=== PATIENT | female | born 1945 | race Asian ===

== ENCOUNTER → 2023-05-14 12:40 | Outpatient (REF) | payer MEDICARE, OTHER, SELFPAY ==
[2023-05-14 13:51] LABS: INR 2.74; PT 29.4 Sec (11.4-14.6)
== END ==
LOC: REG 12:40
PROVIDERS: ATTENDING PHYSICIAN Internal Medicine Cardiovascular Disease; FAMILY PHYSICIAN Family Medicine
DX: Z79.01 Long term (current) use of anticoagulants (principal); E78.2 Mixed hyperlipidemia; R06.02 Shortness of breath; R07.9 Chest pain, unspecified; I05.0 Rheumatic mitral stenosis; I48.0 Paroxysmal atrial fibrillation; Z95.2 Presence of prosthetic heart valve; Z98.890 Other specified postprocedural states; I35.1 Nonrheumatic aortic (valve) insufficiency; I51.7 Cardiomegaly
CPT/HCPCS: 36415; 85610

== ENCOUNTER → 2023-06-09 12:34 | Outpatient (REF) | payer MEDICARE, OTHER, SELFPAY ==
[2023-06-09 14:58] LABS: INR 3.49
== END ==
LOC: REG 12:34
PROVIDERS: ATTENDING PHYSICIAN Internal Medicine Cardiovascular Disease; FAMILY PHYSICIAN Family Medicine
DX: Z79.01 Long term (current) use of anticoagulants (principal); E78.2 Mixed hyperlipidemia
CPT/HCPCS: 36415; 85610

== ENCOUNTER → 2023-07-10 13:02 | Outpatient (REF) | payer MEDICARE, OTHER, SELFPAY ==
[2023-07-10 13:38] LABS: Hematocrit 38.5 % (37.0-47.0); Hemoglobin 12.8 g/dL (12.0-16.0); Mean Corp Hgb Conc. 33.2 g/dL (33.0-37.0); Mean Corpuscular Hgb 32.7 pg (27.0-31.0); Mean Corpuscular Volume 98.5 fL (81.0-99.0); Mean Platelet Volume 10.5 fL (7.4-10.4); Platelet Count 180 10^3/uL (130-400); Red Blood Cell Count 3.91 10^6/uL (4.20-5.40); Red Cell Dist. Width 14.3 % (11.5-14.5); White Blood Cell Count 5.9 10^3/uL (4.8-10.8)
[2023-07-10 13:49] LABS: INR 3.15; PT 32.3 Sec (11.4-14.6)
[2023-07-10 15:23] LABS: HDL Cholesterol 76 mg/dl
[2023-07-10 15:47] LABS: ALT (SGPT) 12 U/L (0-35); AST (SGOT) 28 U/L (14-36); Albumin 4.7 g/dl (3.5-5.0); Alkaline Phosphatase 74 U/L (38-126); Blood Urea Nitrogen 16 mg/dl (7-17); Calcium 10.1 mg/dl (8.4-10.2); Carbon Dioxide 22 mmol/L (22-30); Chloride 105 mmol/L (98-107); Glucose 108 mg/dl (70-99); Potassium 3.7 mmol/L (3.5-5.1); Sodium 140 mmol/L (135-145); Total Protein 8.7 g/dl (6.3-8.2); eGFR 57.66
[2023-07-10 16:51] LABS: Creatine Phosphokinase 81 U/L (30-135); LDL Cholesterol, Calculated 94 mg/dl; Magnesium 2.2 mg/dl (1.6-2.3); Total Cholesterol 199 mg/dl (50-199); Triglyceride 148 mg/dl (10-149); Very Low Density Lipoprotein 29 mg/dl (0-30)
== END ==
LOC: REG 13:02
PROVIDERS: ATTENDING PHYSICIAN Internal Medicine Cardiovascular Disease; FAMILY PHYSICIAN Family Medicine
DX: Z79.01 Long term (current) use of anticoagulants (principal); E78.2 Mixed hyperlipidemia; I05.0 Rheumatic mitral stenosis; I48.0 Paroxysmal atrial fibrillation; Z95.2 Presence of prosthetic heart valve; Z98.890 Other specified postprocedural states; I35.1 Nonrheumatic aortic (valve) insufficiency; I51.7 Cardiomegaly; R73.09 Other abnormal glucose
CPT/HCPCS: 36415; 80053; 80061; 82550; 83036; 83735; 85027; 85610

== ENCOUNTER → 2023-08-18 12:25 | Outpatient (REF) | payer MEDICARE, OTHER, SELFPAY ==
[2023-08-18 14:24] LABS: INR 3.79; PT 37.4 Sec (11.4-14.6)
[2023-08-18 14:44] LABS: Blood Urea Nitrogen 11 mg/dl (7-17); Calcium 9.7 mg/dl (8.4-10.2); Carbon Dioxide 30 mmol/L (22-30); Chloride 104 mmol/L (98-107); Glucose 107 mg/dl (70-99); Potassium 4.3 mmol/L (3.5-5.1); eGFR 57.66
[2023-08-18 15:21] LABS: Sodium 141 mmol/L (135-145)
== END ==
LOC: REG 12:25
PROVIDERS: ATTENDING PHYSICIAN Internal Medicine Cardiovascular Disease; FAMILY PHYSICIAN Family Medicine; REFERRING PHYSICIAN Registered Nurse Oncology
DX: C54.1 Malignant neoplasm of endometrium (principal); Z79.01 Long term (current) use of anticoagulants; E78.2 Mixed hyperlipidemia; I48.0 Paroxysmal atrial fibrillation; Z95.2 Presence of prosthetic heart valve; I35.1 Nonrheumatic aortic (valve) insufficiency
CPT/HCPCS: 36415; 80048; 85610

== ENCOUNTER → 2023-09-16 12:30 | Outpatient (REF) | payer MEDICARE, OTHER, SELFPAY ==
[2023-09-16 13:46] LABS: INR 3.16; PT 32.9 Sec (11.4-14.6)
== END ==
LOC: REG 12:30
PROVIDERS: ATTENDING PHYSICIAN Internal Medicine Cardiovascular Disease; FAMILY PHYSICIAN Family Medicine
DX: Z79.01 Long term (current) use of anticoagulants (principal); E78.2 Mixed hyperlipidemia; I48.0 Paroxysmal atrial fibrillation; Z95.2 Presence of prosthetic heart valve; I35.1 Nonrheumatic aortic (valve) insufficiency; I51.7 Cardiomegaly
CPT/HCPCS: 36415; 85610

== ENCOUNTER → 2023-10-16 12:28 | Outpatient (REF) | payer MEDICARE, OTHER, SELFPAY ==
[2023-10-16 13:53] LABS: INR 4.89; PT 45.8 Sec (11.4-14.6)
== END ==
LOC: REG 12:28
PROVIDERS: ATTENDING PHYSICIAN Internal Medicine Cardiovascular Disease; FAMILY PHYSICIAN Family Medicine
DX: Z79.01 Long term (current) use of anticoagulants (principal); E78.2 Mixed hyperlipidemia; I48.0 Paroxysmal atrial fibrillation; I05.0 Rheumatic mitral stenosis; Z95.2 Presence of prosthetic heart valve; I35.1 Nonrheumatic aortic (valve) insufficiency; I51.7 Cardiomegaly
CPT/HCPCS: 36415; 85610

== ENCOUNTER → 2023-11-12 12:24 | Outpatient (REF) | payer MEDICARE, OTHER, SELFPAY ==
[2023-11-12 13:36] LABS: INR 3.29
== END ==
LOC: REG 12:24
PROVIDERS: ATTENDING PHYSICIAN Internal Medicine Cardiovascular Disease; FAMILY PHYSICIAN Family Medicine
DX: Z79.01 Long term (current) use of anticoagulants (principal); E78.2 Mixed hyperlipidemia; I48.0 Paroxysmal atrial fibrillation; I05.0 Rheumatic mitral stenosis; Z95.2 Presence of prosthetic heart valve; I35.1 Nonrheumatic aortic (valve) insufficiency; I51.7 Cardiomegaly
CPT/HCPCS: 36415; 85610

== ENCOUNTER → 2023-12-11 12:20 | Outpatient (REF) | payer MEDICARE, OTHER, SELFPAY ==
[2023-12-11 14:05] LABS: INR 2.57; PT 27.5 Sec (11.4-14.6)
== END ==
LOC: REG 12:20
PROVIDERS: ATTENDING PHYSICIAN Internal Medicine Cardiovascular Disease; FAMILY PHYSICIAN Family Medicine
DX: Z79.01 Long term (current) use of anticoagulants (principal); E78.2 Mixed hyperlipidemia; I48.0 Paroxysmal atrial fibrillation; I05.0 Rheumatic mitral stenosis; Z95.2 Presence of prosthetic heart valve; I35.1 Nonrheumatic aortic (valve) insufficiency; I51.7 Cardiomegaly
CPT/HCPCS: 36415; 85610

== ENCOUNTER → 2024-01-13 13:00 | Outpatient (REF) | payer MEDICARE, OTHER, SELFPAY ==
[2024-01-13 13:49] LABS: Hematocrit 39.7 % (37.0-47.0); Mean Corp Hgb Conc. 32.7 g/dL (33.0-37.0); Mean Corpuscular Hgb 31.3 pg (27.0-31.0); Mean Corpuscular Volume 95.7 fL (81.0-99.0); Mean Platelet Volume 10.2 fL (7.4-10.4); Platelet Count 203 10^3/uL (130-400); Red Blood Cell Count 4.15 10^6/uL (4.20-5.40); Red Cell Dist. Width 15.4 % (11.5-14.5); White Blood Cell Count 7.3 10^3/uL (4.8-10.8)
[2024-01-13 14:00] LABS: INR 3.09; PT 32.3 Sec (11.4-14.6)
[2024-01-13 14:24] LABS: Glycohemoglobin (HgbA1c) 5.7 % (4.0-5.6)
[2024-01-13 15:40] LABS: ALT (SGPT) 16 U/L (0-35); AST (SGOT) 28 U/L (14-36); Albumin 4.9 g/dl (3.5-5.0); Alkaline Phosphatase 79 U/L (38-126); Blood Urea Nitrogen 12 mg/dl (7-17); Calcium 9.9 mg/dl (8.4-10.2); Carbon Dioxide 27 mmol/L (22-30); Chloride 102 mmol/L (98-107); Creatine Phosphokinase 87 U/L (30-135); Glucose 115 mg/dl (70-99); HDL Cholesterol 77 mg/dl; LDL Cholesterol, Calculated 86 mg/dl; Magnesium 2.3 mg/dl (1.6-2.3); Potassium 3.8 mmol/L (3.5-5.1); Sodium 142 mmol/L (135-145); Total Bilirubin 1.4 mg/dl (0.2-1.3); Total Cholesterol 194 mg/dl (50-199); Total Protein 8.7 g/dl (6.3-8.2); Triglyceride 158 mg/dl (10-149); Very Low Density Lipoprotein 31 mg/dl (0-30); eGFR 51.43
[2024-01-13 16:09] LABS: TSH Reflex To Free T4 4.78 uIU/ml (0.47-4.68)
[2024-01-13 16:39] LABS: Free T4 1.01 ng/dl (0.78-2.19)
== END ==
LOC: REG 13:00
PROVIDERS: ATTENDING PHYSICIAN Internal Medicine Cardiovascular Disease; FAMILY PHYSICIAN Family Medicine
DX: Z79.01 Long term (current) use of anticoagulants (principal); E78.2 Mixed hyperlipidemia; I48.0 Paroxysmal atrial fibrillation; I05.0 Rheumatic mitral stenosis; Z95.2 Presence of prosthetic heart valve; I35.1 Nonrheumatic aortic (valve) insufficiency; I51.7 Cardiomegaly; I36.1 Nonrheumatic tricuspid (valve) insufficiency; R73.9 Hyperglycemia, unspecified
CPT/HCPCS: 36415; 80053; 80061; 82550; 83036; 83735; 84439; 84443; 85027; 85610

== ENCOUNTER → 2024-02-10 12:31 | Outpatient (REF) | payer MEDICARE, OTHER, SELFPAY ==
[2024-02-10 13:40] LABS: INR 1.76
== END ==
LOC: REG 12:31
PROVIDERS: ATTENDING PHYSICIAN Internal Medicine Cardiovascular Disease; FAMILY PHYSICIAN Family Medicine
DX: R42 Dizziness and giddiness (principal); Z79.01 Long term (current) use of anticoagulants; E78.2 Mixed hyperlipidemia; I05.0 Rheumatic mitral stenosis; I48.0 Paroxysmal atrial fibrillation; Z98.890 Other specified postprocedural states; I51.7 Cardiomegaly
CPT/HCPCS: 36415; 85610

== ENCOUNTER → 2024-02-24 12:45 | Outpatient (REF) | payer MEDICARE, OTHER, SELFPAY ==
[2024-02-24 14:26] LABS: INR 1.83; PT 21.7 Sec (11.4-14.6)
== END ==
LOC: REG 12:45
PROVIDERS: ATTENDING PHYSICIAN Internal Medicine Cardiovascular Disease; FAMILY PHYSICIAN Family Medicine
DX: R42 Dizziness and giddiness (principal); Z79.01 Long term (current) use of anticoagulants; E78.2 Mixed hyperlipidemia; I05.0 Rheumatic mitral stenosis; I48.0 Paroxysmal atrial fibrillation; Z98.890 Other specified postprocedural states; I35.1 Nonrheumatic aortic (valve) insufficiency; I51.7 Cardiomegaly
CPT/HCPCS: 36415; 85610

== ENCOUNTER → 2024-03-25 12:41 | Outpatient (REF) | payer MEDICARE, OTHER, SELFPAY ==
[2024-03-25 14:03] LABS: INR 1.85; PT 21.5 Sec (11.4-14.6)
== END ==
LOC: REG 12:41
PROVIDERS: ATTENDING PHYSICIAN Internal Medicine Cardiovascular Disease; FAMILY PHYSICIAN Family Medicine
DX: R42 Dizziness and giddiness (principal); Z79.01 Long term (current) use of anticoagulants; E78.2 Mixed hyperlipidemia; I05.0 Rheumatic mitral stenosis; I48.0 Paroxysmal atrial fibrillation; Z98.890 Other specified postprocedural states
CPT/HCPCS: 36415; 85610

== ENCOUNTER → 2024-04-06 12:55 | Outpatient (REF) | payer MEDICARE, OTHER, SELFPAY ==
[2024-04-06 14:40] LABS: % Eosinophils 3.7 % (0-6); % Immature Granulocytes 0.8 % (0-0.5); % Lymphocytes 20.2 % (20.5-51.1); % Monocytes 7.2 % (1.7-9.3); % Neutrophils 67.1 % (42.2-75.2); Absolute Basophils 0.1 10^3/uL (0-0.2); Absolute Eosinophils 0.2 10^3/uL (0-0.7); Absolute Monocytes 0.4 10^3/uL (0.1-0.6); Absolute Neutrophils 3.5 10^3/uL (1.4-6.5); Hematocrit 39.5 % (37.0-47.0); Hemoglobin 12.5 g/dL (12.0-16.0); Mean Corp Hgb Conc. 31.6 g/dL (33.0-37.0); Mean Platelet Volume 10.8 fL (7.4-10.4); Nucleated Red Blood Cells % 0 %; Platelet Count 174 10^3/uL (130-400); Red Blood Cell Count 3.91 10^6/uL (4.20-5.40); Red Cell Dist. Width 15.7 % (11.5-14.5); White Blood Cell Count 5.2 10^3/uL (4.8-10.8)
[2024-04-06 14:50] LABS: INR 1.48; PT 18.5 Sec (11.4-14.6)
[2024-04-06 15:10] LABS: Albumin 4.6 g/dl (3.5-5.0); Blood Urea Nitrogen 12 mg/dl (7-17); Carbon Dioxide 29 mmol/L (22-30); Chloride 101 mmol/L (98-107); Total Cholesterol 184 mg/dl (50-199)
[2024-04-06 15:12] LABS: ALT (SGPT) 21 U/L (0-35); AST (SGOT) 30 U/L (14-36); Alkaline Phosphatase 87 U/L (38-126); Calcium 9.7 mg/dl (8.4-10.2); Glucose 91 mg/dl (70-99); Potassium 4.4 mmol/L (3.5-5.1); Sodium 138 mmol/L (135-145); Total Protein 8.1 g/dl (6.3-8.2); Triglyceride 85 mg/dl (10-149); Very Low Density Lipoprotein 17 mg/dl (0-30); eGFR 51.11
[2024-04-06 15:22] LABS: Free T4 0.99 ng/dl (0.78-2.19)
[2024-04-06 15:36] LABS: TSH 3.34 uIU/ml (0.47-4.68)
[2024-04-06 16:35] LABS: HDL Cholesterol 93 mg/dl; LDL Cholesterol, Calculated 74 mg/dl
[2024-04-07 08:51] LABS: Glycohemoglobin (HgbA1c) 5.5 % (4.0-5.6)
== END ==
LOC: REG 12:55
PROVIDERS: ATTENDING PHYSICIAN Internal Medicine Cardiovascular Disease; FAMILY PHYSICIAN Family Medicine
DX: R42 Dizziness and giddiness (principal); Z79.01 Long term (current) use of anticoagulants; E78.2 Mixed hyperlipidemia; I05.0 Rheumatic mitral stenosis; I48.0 Paroxysmal atrial fibrillation; Z98.890 Other specified postprocedural states; I35.1 Nonrheumatic aortic (valve) insufficiency; I51.7 Cardiomegaly; R73.01 Impaired fasting glucose; I10 Essential (primary) hypertension; E78.49 Other hyperlipidemia
CPT/HCPCS: 36415; 80053; 80061; 83036; 84439; 84443; 85025; 85610

== ENCOUNTER → 2024-04-26 12:11 | Outpatient (REF) | payer MEDICARE, OTHER, SELFPAY | LOC: REG 12:11 | PROVIDERS: ATTENDING PHYSICIAN Internal Medicine Cardiovascular Disease; FAMILY PHYSICIAN Family Medicine | DX: R42 Dizziness and giddiness (principal); Z79.01 Long term (current) use of anticoagulants; E78.2 Mixed hyperlipidemia; I05.0 Rheumatic mitral stenosis; I48.0 Paroxysmal atrial fibrillation; Z98.890 Other specified postprocedural states; I35.1 Nonrheumatic aortic (valve) insufficiency; I51.7 Cardiomegaly | CPT/HCPCS: 36415; 85610 ==

== ENCOUNTER → 2024-07-23 10:22 | Outpatient (REF) | payer MEDICARE, OTHER, SELFPAY ==
[2024-07-23 12:16] LABS: INR 3.06; PT 31.5 Sec (11.4-14.6)
== END ==
LOC: REG 10:22
PROVIDERS: ATTENDING PHYSICIAN Internal Medicine Cardiovascular Disease; FAMILY PHYSICIAN Family Medicine
DX: R42 Dizziness and giddiness (principal); Z79.01 Long term (current) use of anticoagulants; E78.2 Mixed hyperlipidemia; R06.02 Shortness of breath; R07.9 Chest pain, unspecified; I05.0 Rheumatic mitral stenosis; I48.0 Paroxysmal atrial fibrillation; Z95.2 Presence of prosthetic heart valve; Z98.890 Other specified postprocedural states; I35.1 Nonrheumatic aortic (valve) insufficiency; I51.7 Cardiomegaly
CPT/HCPCS: 36415; 85610

== ENCOUNTER → 2024-08-23 12:54 | Outpatient (REF) | payer MEDICARE, OTHER, SELFPAY ==
[2024-08-23 13:46] LABS: PT 38.6 Sec (11.4-14.6)
== END ==
LOC: REG 12:54
PROVIDERS: ATTENDING PHYSICIAN Internal Medicine Cardiovascular Disease; FAMILY PHYSICIAN Family Medicine
DX: R42 Dizziness and giddiness (principal); Z79.01 Long term (current) use of anticoagulants; E78.2 Mixed hyperlipidemia; R06.02 Shortness of breath; R07.9 Chest pain, unspecified; I05.0 Rheumatic mitral stenosis; I48.0 Paroxysmal atrial fibrillation; Z95.2 Presence of prosthetic heart valve; Z98.890 Other specified postprocedural states; I35.1 Nonrheumatic aortic (valve) insufficiency; I51.7 Cardiomegaly
CPT/HCPCS: 36415; 85610

== ENCOUNTER → 2024-09-07 12:01 | Outpatient (REF) | payer MEDICARE, OTHER, SELFPAY ==
[2024-09-07 13:01] LABS: INR 2.83; PT 30.2 Sec (11.4-14.6)
== END ==
LOC: RAD 12:01
PROVIDERS: ATTENDING PHYSICIAN Internal Medicine Cardiovascular Disease; FAMILY PHYSICIAN Family Medicine; REFERRING PHYSICIAN Physical Medicine & Rehabilitation
DX: R42 Dizziness and giddiness (principal); Z79.01 Long term (current) use of anticoagulants; E78.2 Mixed hyperlipidemia; R06.02 Shortness of breath; R07.9 Chest pain, unspecified; I05.0 Rheumatic mitral stenosis; I48.0 Paroxysmal atrial fibrillation; Z95.2 Presence of prosthetic heart valve; Z98.890 Other specified postprocedural states; I35.1 Nonrheumatic aortic (valve) insufficiency; I51.7 Cardiomegaly; M75.00 Adhesive capsulitis of unspecified shoulder; M75.02 Adhesive capsulitis of left shoulder; M19.012 Primary osteoarthritis, left shoulder
CPT/HCPCS: 36415; 73030; 85610

== ENCOUNTER → 2024-09-27 10:24 | Outpatient (REF) | payer MEDICARE, OTHER, SELFPAY ==
[2024-09-27 11:31] LABS: Hematocrit 34.6 % (37.0-47.0); Hemoglobin 11.1 g/dL (12.0-16.0); Mean Corp Hgb Conc. 32.1 g/dL (33.0-37.0); Mean Corpuscular Volume 101.8 fL (81.0-99.0); Platelet Count 166 10^3/uL (130-400); Red Cell Dist. Width 14.8 % (11.5-14.5)
[2024-09-27 11:44] LABS: INR 3.45; PT 34.5 Sec (11.4-14.6)
[2024-09-27 12:01] LABS: Glycohemoglobin (HgbA1c) 5.6 % (4.0-5.6)
[2024-09-27 12:30] LABS: CRP, Ultra Sensitive 6.80 mg/L (0.30-5.00)
[2024-09-27 12:35] LABS: ALT (SGPT) 19 U/L (0-35); AST (SGOT) 20 U/L (14-36); Albumin 4.3 g/dl (3.5-5.0); Alkaline Phosphatase 58 U/L (38-126); Blood Urea Nitrogen 15 mg/dl (7-17); Calcium 9.0 mg/dl (8.4-10.2); Carbon Dioxide 24 mmol/L (22-30); Chloride 107 mmol/L (98-107); Glucose 88 mg/dl (70-99); HDL Cholesterol 65 mg/dl; LDL Cholesterol, Calculated 67 mg/dl; Magnesium 2.4 mg/dl (1.6-2.3); Potassium 4.2 mmol/L (3.5-5.1); Sodium 138 mmol/L (135-145); Total Protein 7.7 g/dl (6.3-8.2); Very Low Density Lipoprotein 14 mg/dl (0-30); eGFR 51.11
== END ==
LOC: REG 10:24
PROVIDERS: ATTENDING PHYSICIAN Internal Medicine Cardiovascular Disease; FAMILY PHYSICIAN Family Medicine
DX: R42 Dizziness and giddiness (principal); Z79.01 Long term (current) use of anticoagulants; E78.2 Mixed hyperlipidemia; R06.02 Shortness of breath; R07.9 Chest pain, unspecified; I05.0 Rheumatic mitral stenosis; I48.0 Paroxysmal atrial fibrillation; Z95.2 Presence of prosthetic heart valve; Z98.890 Other specified postprocedural states; I35.1 Nonrheumatic aortic (valve) insufficiency; I51.7 Cardiomegaly; R73.03 Prediabetes
CPT/HCPCS: 36415; 80053; 80061; 82550; 83036; 83735; 84443; 85027; 85610; 86141

== ENCOUNTER → 2024-10-19 12:35 | Outpatient (REF) | payer MEDICARE, OTHER, SELFPAY ==
[2024-10-19 13:20] LABS: INR 2.01; PT 23.3 Sec (11.4-14.6)
== END ==
LOC: REG 12:35
PROVIDERS: ATTENDING PHYSICIAN Internal Medicine Cardiovascular Disease; FAMILY PHYSICIAN Family Medicine
DX: R42 Dizziness and giddiness (principal); Z79.01 Long term (current) use of anticoagulants; E78.2 Mixed hyperlipidemia; R06.02 Shortness of breath; R07.9 Chest pain, unspecified; I05.0 Rheumatic mitral stenosis; I48.0 Paroxysmal atrial fibrillation; Z95.2 Presence of prosthetic heart valve; Z98.890 Other specified postprocedural states; I35.1 Nonrheumatic aortic (valve) insufficiency; I51.7 Cardiomegaly
CPT/HCPCS: 36415; 85610

== ENCOUNTER → 2024-11-08 14:21 | Outpatient (REF) | payer MEDICARE, OTHER, SELFPAY ==
[2024-11-08 15:13] LABS: INR 3.95; PT 38.2 Sec (11.4-14.6)
== END ==
LOC: REG 14:21
PROVIDERS: ATTENDING PHYSICIAN Internal Medicine Cardiovascular Disease; FAMILY PHYSICIAN Family Medicine
DX: R42 Dizziness and giddiness (principal); Z79.01 Long term (current) use of anticoagulants; E78.2 Mixed hyperlipidemia; R06.02 Shortness of breath; R07.9 Chest pain, unspecified; I48.0 Paroxysmal atrial fibrillation; I05.0 Rheumatic mitral stenosis; Z95.2 Presence of prosthetic heart valve; Z98.890 Other specified postprocedural states; I35.1 Nonrheumatic aortic (valve) insufficiency; I51.7 Cardiomegaly
CPT/HCPCS: 36415; 85610

== ENCOUNTER → 2024-12-01 12:41 | Outpatient (REF) | payer MEDICARE, OTHER, SELFPAY ==
[2024-12-01 13:40] LABS: INR 4.07; PT 39.7 Sec (11.4-14.6)
== END ==
LOC: REG 12:41
PROVIDERS: ATTENDING PHYSICIAN Internal Medicine Cardiovascular Disease; FAMILY PHYSICIAN Family Medicine
DX: R42 Dizziness and giddiness (principal); Z79.01 Long term (current) use of anticoagulants; E78.2 Mixed hyperlipidemia; R06.02 Shortness of breath; R07.9 Chest pain, unspecified; I05.0 Rheumatic mitral stenosis; I48.0 Paroxysmal atrial fibrillation; Z95.2 Presence of prosthetic heart valve; Z98.890 Other specified postprocedural states
CPT/HCPCS: 36415; 85610

== ENCOUNTER → 2024-12-08 12:48 | Outpatient (REF) | payer MEDICARE, OTHER, SELFPAY ==
[2024-12-08 14:14] LABS: INR 1.87; PT 22.0 Sec (11.4-14.6)
== END ==
LOC: REG 12:48
PROVIDERS: ATTENDING PHYSICIAN Internal Medicine Cardiovascular Disease; FAMILY PHYSICIAN Family Medicine
DX: R42 Dizziness and giddiness (principal); Z79.01 Long term (current) use of anticoagulants; E78.2 Mixed hyperlipidemia; R06.02 Shortness of breath; R07.9 Chest pain, unspecified; I05.0 Rheumatic mitral stenosis; I48.0 Paroxysmal atrial fibrillation; Z95.2 Presence of prosthetic heart valve; Z98.890 Other specified postprocedural states
CPT/HCPCS: 36415; 85610

== ENCOUNTER → 2024-12-28 14:09 | Outpatient (REF) | payer MEDICARE, OTHER, SELFPAY ==
[2024-12-28 14:46] LABS: INR 4.48; PT 42.7 Sec (11.4-14.6)
== END ==
LOC: REG 14:09
PROVIDERS: ATTENDING PHYSICIAN Internal Medicine Cardiovascular Disease; FAMILY PHYSICIAN Family Medicine
DX: R42 Dizziness and giddiness (principal); Z79.01 Long term (current) use of anticoagulants; E78.2 Mixed hyperlipidemia; R06.02 Shortness of breath; R07.9 Chest pain, unspecified; Z98.890 Other specified postprocedural states; I35.1 Nonrheumatic aortic (valve) insufficiency; I48.0 Paroxysmal atrial fibrillation
CPT/HCPCS: 36415; 85610

== ENCOUNTER → 2025-01-20 12:45 | Outpatient (REF) | payer MEDICARE, OTHER, SELFPAY ==
[2025-01-20 13:56] LABS: INR 1.91; PT 22.1 Sec (11.4-14.6)
== END ==
LOC: REG 12:45
PROVIDERS: ATTENDING PHYSICIAN Internal Medicine Cardiovascular Disease; FAMILY PHYSICIAN Family Medicine
DX: R42 Dizziness and giddiness (principal); Z79.01 Long term (current) use of anticoagulants; E78.2 Mixed hyperlipidemia; R06.02 Shortness of breath; R07.9 Chest pain, unspecified; I05.0 Rheumatic mitral stenosis; I48.0 Paroxysmal atrial fibrillation; Z95.2 Presence of prosthetic heart valve; Z98.890 Other specified postprocedural states; I35.1 Nonrheumatic aortic (valve) insufficiency; I51.7 Cardiomegaly
CPT/HCPCS: 36415; 85610

== ENCOUNTER → 2025-02-24 12:21 | Outpatient (REF) | payer MEDICARE, OTHER, SELFPAY ==
[2025-02-24 14:31] LABS: INR 2.10; PT 23.7 Sec (11.4-14.6)
== END ==
LOC: REG 12:21
PROVIDERS: FAMILY PHYSICIAN Family Medicine
DX: R42 Dizziness and giddiness (principal); Z79.01 Long term (current) use of anticoagulants; E78.2 Mixed hyperlipidemia; R06.02 Shortness of breath; R07.9 Chest pain, unspecified; I05.0 Rheumatic mitral stenosis; I48.0 Paroxysmal atrial fibrillation; Z95.2 Presence of prosthetic heart valve; Z98.890 Other specified postprocedural states; I35.1 Nonrheumatic aortic (valve) insufficiency; I51.7 Cardiomegaly
CPT/HCPCS: 36415; 85610